=== PATIENT | male | born 1950 | race Caucasian/White ===

== ENCOUNTER 2016-08-31 08:34 | Outpatient (CLI) | payer BC ==
[2016-08-31 13:47] LABS: ALT (SGPT) 48 U/L (8-55); AST (SGOT) 33 U/L (5-34); Albumin 3.9 g/dL (3.4-4.8); Alkaline Phosphatase 83 U/L (40-150); Anion Gap 16 mmol/L (10-20); BUN (Urea Nitrogen) 27 mg/dL (8.4-25.7); Bilirubin, Direct 0.1 mg/dL (0.1-0.3); Bilirubin, Total 0.3 mg/dL (0.2-1.2); Calc. Creatinine Clearance 0 mL/min (70-130); Calcium 8.8 mg/dL (7.8-10.44); Carbon Dioxide 22 mmol/L (23-31); Cardiac Risk 3.4 (Less than 4.5); Chloride 104 mmol/L (98-107); Cholesterol 172 mg/dL (< 200 Desired); Estimated GFR-MDRD 72; Glucose 109 mg/dL (80-115); HDL Cholesterol 51 mg/dL (>60 Neg Risk); LDL Cholesterol, Calculated 93 mg/dL; Potassium 4.4 mmol/L (3.5-5.1); Protein, Total 6.2 g/dL (5.8-8.1); Sodium 138 mmol/L (136-145); Triglycerides 140 mg/dL (Less than 150)
[2016-08-31 13:52] LABS: PSA-Asymptomatic (SCREENING) 1.44 ng/mL (0-4.0); Thyroid Stimulating Hormone 1.5169 uIU/mL (0.35-4.94)
[2016-08-31 14:08] LABS: Hemoglobin A1c 5.6 % (4.0-6.0)
[2016-08-31 14:30] LABS: Hemoglobin 14.4 g/dL (14.0-18.0); Mean Corpuscular HGB CONC 33.4 g/dL (32.0-36.0); Mean Platelet Volume 8.9 fL (7.4-10.4); Platelet Count 206 thou/uL (130-400); RBC Distribution Width 12.5 % (11.5-14.5); Red Blood Cell (RBC) Count 4.78 mill/uL (4.70-6.10); White Blood Cell (WBC) Count 25.3 thou/uL (4.8-10.8)
[2016-08-31 14:31] LABS: Band 1 % (5-11); Eosinophils 4 % (0-10); Lymphocytes 71 % (21-51); MDiff Complete? YES; Monocytes 7 % (0-10); Neutrophil 17 % (42-75); PLT Morphology Comment Appears Adequate
== END 2016-08-31 08:35 | disposition home or self-care (01) ==
LOC: NAVSJIPCSP 08:34
PROVIDERS: ATTEND Family Medicine
DX: Z00.00 Encounter for general adult medical examination without abnormal findings (principal)
CPT/HCPCS: 36415; 80048; 80061; 80076; 83036; 84403; 84443; 85025; G0103

== ENCOUNTER 2016-09-07 15:03 | Outpatient (CLI) | payer BC ==
[2016-09-07 16:57] LABS: Band 1 % (5-11); Eosinophils 1 % (0-10); Hemoglobin 14.8 g/dL (14.0-18.0); Lymphocytes 72 % (21-51); MDiff Complete? YES; Mean Corpuscular HGB CONC 33.6 g/dL (32.0-36.0); Mean Corpuscular Hemoglobin 29.8 pg (27.0-31.0); Mean Corpuscular Volume 88.6 fl (80.0-94.0); Monocytes 4 % (0-10); Neutrophil 18 % (42-75); Platelet Count 219 thou/uL (130-400); RBC Distribution Width 12.4 % (11.5-14.5); Reactive Lymphocytes 2 % (0-10); Red Blood Cell (RBC) Count 4.96 mill/uL (4.70-6.10); White Blood Cell (WBC) Count 22.1 thou/uL (4.8-10.8)
== END 2016-09-07 15:04 | disposition home or self-care (01) ==
LOC: NAV LAB 15:03
PROVIDERS: ATTEND Family Medicine
DX: D72.829 Elevated white blood cell count, unspecified (principal)
CPT/HCPCS: 36415; 85025; 88184